=== PATIENT | male | born 1995 | race Caucasian/White ===

== ENCOUNTER 2022-04-06 18:04 | Emergency (ER) | payer OTHER ==
[2022-04-06 18:18] VITALS: BP 128/48; PULSE 83; RESP 20; TEMP 98.1; BMI 20.5
== END 2022-04-06 20:48 | disposition home or self-care (01) ==
LOC: FER 18:04
PROC: 0RSXXZZ Reposition Left Finger Phalangeal Joint, External Approach (ICD-10-PCS; principal; 2022-04-06)
DX: S63.257A Unspecified dislocation of left little finger, initial encounter (principal); W21.05XA Struck by basketball, initial encounter; Y93.67 Activity, basketball
CPT/HCPCS: 73140-TC-LT-FY; 99283-25